=== PATIENT | female | born 1990 | race Caucasian/White ===

== ENCOUNTER 2021-02-24 15:51 | Emergency (ER) | payer BC ==
[~2021-02-24 15:51] MED LIST: COLACE 100MG C100 MG PO; IBUPROFEN600 MG PO; NORCO 5-325 TA1 EACH PO; PRENATAL VITAM1 EAC8 PO; SLOW-MAG71.5 MG PO; TUMS ULTRA400 MG PO; TYLENOL 325MG325 MG PO; ZYRTEC10 MG PO
[2021-02-24 17:41] LABS: HEMOGLOBIN 13.9 gm/dl (12.3-15.3); RED BLOOD COUNT 4.85 M/UL (4.00-5.10)
[2021-02-24 18:01] LABS: BUN/CREATININE RATIO 14 (0-10)
== END 2021-02-24 18:46 | disposition home or self-care (01) ==
LOC: ER1 15:51
PROVIDERS: Physician Assistant
DX: K76.9 Liver disease, unspecified (principal)
CPT/HCPCS: 80053; 81001; 85025; 99284